=== PATIENT | female | born 1970 | race Native Hawaiian/Other Pacific Islander ===

== ENCOUNTER 2017-03-15 14:49 | Outpatient (CLI) | payer OTHER ==
[~2017-03-15 14:49] MED LIST: BUSP5TAB2 PO
== END 2017-03-15 15:00 | disposition short-term general hospital (02) ==
LOC: AMB 14:49
DX: R06.02 Shortness of breath (principal); T50.995A Adverse effect of other drugs, medicaments and biological substances, initial encounter; Y92.098 Other place in other non-institutional residence as the place of occurrence of the external cause
CPT/HCPCS: A0425; A0427

== ENCOUNTER 2017-03-15 15:00 | Emergency (ER) | payer OTHER ==
[~2017-03-15] VITALS: Ht 167.6 cm; Wt 77.1 kg
[2017-03-15 16:02] VITALS: BP 98/49; TEMP 97.4
== END 2017-03-15 16:09 | disposition home or self-care (01) ==
LOC: ED 15:00
DX: R22.0 Localized swelling, mass and lump, head (principal); T36.3X5A Adverse effect of macrolides, initial encounter; Y92.098 Other place in other non-institutional residence as the place of occurrence of the external cause
CPT/HCPCS: 96374; 99284; J2930